=== PATIENT | female | born 1940 | race Caucasian/White ===

== ENCOUNTER 2018-02-26 21:08 | Emergency (ER) | payer MEDICARE ==
[2018-02-26] MEDS ORDERED: PROPARACAINE HCL OPTH 15ML BTL OPTH ONE ×2 (21:28→21:29)
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
[2018-02-26] MEDS ORDERED: POLYMYXIN B SULF/TRIMETHOPRIM 10ML BTL OPTH ONE (21:45)
== END 2018-02-26 22:02 | disposition home or self-care (01) ==
LOC: ER 21:08
DX: S05.02XA Injury of conjunctiva and corneal abrasion without foreign body, left eye, initial encounter (principal); H11.32 Conjunctival hemorrhage, left eye; W51.XXXA Accidental striking against or bumped into by another person, initial encounter; Y92.009 Unspecified place in unspecified non-institutional (private) residence as the place of occurrence of the external cause
CPT/HCPCS: 99283

== ENCOUNTER 2018-12-01 13:04 | Emergency (ER) | payer MEDICARE ==
--- NOTE | 2018-12-01 13:41 | Emergency Department Record ---
History of Present Illness - General Chief Complaint: Ankle/Foot Injury Stated Complaint: FALL INJURY Time Seen by Provider: 12/01/18 13:38 Source: Patient, Family Mode of Arrival: Ambulatory Limitations: No limitations - History of Present Illness Initial Comments: 78 yo female presents with a forehead contusion of unknown duration or cause and right foot pain since twisting it yesterday. The patient has some dementia. She does not recall hitting her head. She is hear with her son. He is unsure as well. She did twist her foot/ankle walking yesterday. She has some swelling and tenderness today. No blood thinners. MD Complaint: Foot injury, Other (Head) Injury: Ankle: Right, Foot: Right Type of Injury: Other Place: Home Severity: Moderate Improves With: Rest Worsens With: Movement, Weight bearing Context: Walking Other Symptoms: Other Associated Symptoms: Swelling - Related Data Allergies Allergy/AdvReac Type Severity Reaction Status Date / Time capsaicin Allergy tight Verified 02/26/18 21:15 throat and cough Travel Screening - Travel/Exposure Within Last 30 Days Have you traveled within the last 30 days?: No - Travel/Exposure Within Last Year Have you traveled outside the [place] in the last year?: No - Additonal Travel Details Have you been exposed to anyone with a communicable illness?: No - Travel Symptoms Symptom Screening: None Review of Systems Constitutional: Denies: Chills, Fever, Malaise, Weakness Eyes: Denies: Eye discharge ENT: Denies: Congestion, Throat pain Respiratory: Denies: Cough, Dyspnea, Hemoptysis, Stridor, Wheezes Cardiovascular: Denies: Chest pain, Palpitations, Syncope Endocrine: Denies: Fatigue, Polydipsia, Polyuria Gastrointestinal: Denies: Abdominal pain, Diarrhea, Nausea, Vomiting Genitourinary: Denies: Dysuria, Urgency Musculoskeletal: Reports: As per HPI, Arthralgia. Denies: Back pain Skin: Reports: As per HPI, Bruising Neurological: Denies: Headache, Numbness, Vertigo, Weakness Psychiatric: Denies: Anxiety Hematological/Lymphatic: Denies: Easy bleeding, Easy bruising Past Medical History - SOCIAL HISTORY Smoking Status: Never smoker - RESPIRATORY Hx Respiratory Disorders: No - CARDIOVASCULAR Hx Cardio Disorders: No - NEURO Hx Neuro Disorders: No - GI Hx GI Disorders: Yes Hx Reflux: Yes - Hx Genitourinary Disorders: No - ENDOCRINE Hx Endocrine Disorders: No - MUSCULOSKELETAL Hx Musculoskeletal Disorders: Yes Hx Arthritis: Yes Hx Fibromyalgia: No Hx Gout: No - PSYCH Hx Psych Problems: Yes Hx Depression: Yes - HEMATOLOGY/ONCOLOGY Hx Hematology/Oncology Disorders: No Family Medical History Any Significant Family History?: No Hx Dementia: Mother Hx Stroke: Mother Physical Exam - General General Appearance: Alert, Oriented x3, Cooperative, No acute distress Limitations: No limitations - Head Head exam: negative: Atraumatic Head exam detail: Contusion Image of Face/Head: 1 - bruising, mild swelling - Eye Eye exam: Normal appearance, PERRL, EOMI. negative: Conjunctival injection, Scleral icterus - ENT ENT exam: Normal exam Ear exam: Normal external inspection Nasal Exam: Normal inspection Mouth exam: Normal external inspection - Neck Neck exam: Normal inspection - Respiratory Respiratory exam: Normal lung sounds bilaterally. negative: Respiratory distress - Cardiovascular Cardiovascular Exam: Regular rate, Normal rhythm, Normal heart sounds - GI/Abdominal GI/Abdominal exam: Soft - Rectal Rectal exam: Deferred - exam: Deferred - Extremities Extremities exam: Tenderness. negative: Normal inspection - Back Back exam: Denies: CVA tenderness (R), CVA tenderness (L), Muscle spasm, Paraspinal tenderness, Tenderness - Neurological Neurological exam: Alert, Oriented X3 - Psychiatric Psychiatric exam: Normal affect, Normal mood - Skin Skin exam: Dry, Intact, Normal color, Warm Course Vital Signs 12/01/18 13:30 Temperature 98.4 F Pulse Rate 92 H Respiratory 20 Rate Blood Pressure 115/67 Pulse Ox 97 - Reevaluation(s) Reevaluation #1: 12/01/18 15:04 Questionable first MT fx She is not tender in that area but the patient will be placed in a boot and recommend follow up with the PCP HCT is negative for acute process 12/01/18 18:52 Disposition Disposition: Discharge Clinical Impression: Sprain of foot, right Disposition: Home, Self-Care Condition: (1) Good Instructions: Foot Fracture in Adults (ED) Additional Instructions: Call your doctor for the next available follow up appointment Review this ER visit and the tests performed with your family doctor Return to the ER for a recheck if worse, any new concerns or questions Use the boot for support and protection of the right foot. Recheck the foot with your doctor in one - two weeks Forms: Patient Portal Access Time of Disposition: 15:05 Quality - Quality Measures Quality Measures: N/A - Blood Pressure Screening Does Patient Have Any of the Following: No Blood Pressure Classification: Normal BP Reading Systolic Measurement: 115 Diastolic Measurement: 62 Screening for High Blood Pressure: < Normal BP, F/U Not Required > [G8783]
--- NOTE | 2018-12-04 05:48 | RADIOLOGY REPORT ---
DATE: 12/01/2018 at 1403. EXAM: RIGHT FOOT, THREE VIEWS. HISTORY: FOOT PAIN ONE DAY POSTINJURY. TECHNIQUE: Three views of the right foot. COMPARISON: None at this time. FINDINGS: There is borderline osteopenia. No convincing acute fracture nor dislocation. There is marked abnormality of the first metatarsophalangeal joint including joint space narrowing, subchondral sclerosis, marginal spurring, and subchondral cyst formation. Chronic fracture deformity of the medial aspect of the first metatarsal head is possible. Correlation with physical examination is recommended. Mild degenerative changes scattered elsewhere within the foot without solitario- articular erosion. IMPRESSION: 1. BORDERLINE OSTEOPENIA. 2. NO DEFINITE ACUTE FRACTURE NOR DISLOCATION. 3. MARKED ABNORMALITY OF THE FIRST METATARSOPHALANGEAL JOINT DISCUSSED ABOVE. THERE IS A POSSIBLE FRACTURE OF THE MEDIAL ASPECT OF THE FIRST METATARSAL HEAD, LIKELY CHRONIC. CORRELATION WITH PHYSICAL EXAMINATION IS RECOMMENDED. Job Number: [id number] [facility]
--- NOTE | 2018-12-04 06:04 | CT SCAN REPORT ---
DATE: 12/01/2018 at 1412. EXAM: CT OF THE BRAIN WITHOUT CONTRAST. HISTORY: LUMP ON FOREHEAD WITH BRUISING POST-TRAUMA. TECHNIQUE: Routine noncontrast CT of the brain. COMPARISON: None. FINDINGS: The ventricles and subarachnoid spaces are normal in size. Benign bilateral basal ganglia calcification is present. Minor periventricular white matter lucencies are questioned within the frontal lobes. No other area of abnormally increased or decreased attenuation is noted throughout the brain substance. No abnormal extra-axial fluid collection is seen. No acute skull fracture. No gross cephalohematoma. The visualized paranasal sinuses and mastoid air cells are clear. There are hypertrophic degenerative changes of the atlantodental joint. IMPRESSION: 1. NO CT EVIDENCE OF AN ACUTE INTRACRANIAL ABNORMALITY. 2. MINIMAL PERIVENTRICULAR WHITE MATTER LUCENCIES ARE QUESTIONED IN THE FRONTAL LOBES. THESE ARE NONSPECIFIC BUT LIKELY AREAS OF CHRONIC MICROVASCULAR ISCHEMIA. Job Number: [id number] [facility]
== END 2018-12-01 15:35 | disposition home or self-care (01) ==
LOC: ER 13:04
DX: S93.601A Unspecified sprain of right foot, initial encounter (principal); S00.83XA Contusion of other part of head, initial encounter; X50.1XXA Overexertion from prolonged static or awkward postures, initial encounter; Y92.009 Unspecified place in unspecified non-institutional (private) residence as the place of occurrence of the external cause; F03.90 Unspecified dementia, unspecified severity, without behavioral disturbance, psychotic disturbance, mood disturbance, and anxiety
CPT/HCPCS: 70450; 99283; 99284